=== PATIENT | male | born 1960 | race Caucasian/White ===

== ENCOUNTER 2017-10-21 17:45 | Emergency (ER) | payer BC, MEDICARE ==
[2017-10-21] MEDS ORDERED: XYLOCAINE 2% HCL 20 ML MDV IJ ONE (18:09)
[2017-10-21] MEDS ORDERED: XYLOCAINE 2% HCL 20 ML MDV ONE (18:18)
--- NOTE | 2017-10-21 18:41 | XRAY ---
Indication: 2nd finger pain following injury. Comparison: None 3 views of the right hand demonstrates nondisplaced 2nd tuft fracture. Elsewhere mild degenerative changes of the 1st metacarpal multangular articulation. No other bony, articular, or soft tissue abnormalities.
[2017-10-21] MEDS ORDERED: Augmentin 875-125 Tablet PO ONE (19:16)
--- NOTE | 2017-10-21 19:22 | ERPHSYRPT ---
- History of Present Illness Time Seen by Provider: 10/21/17 18:00 Source: patient Exam Limitations: clinical condition Patient Subjective Stated Complaint: caught 2nd digit right hand in an exercise machine at home just prior to arrival Triage Nursing Assessment: ambulated to room per self with towel around finger. skin w/d, color normal. partial amputation to finger tip 2nd digit right hand. minimal bleeding noted. Physician History: PATIENT SUSTAINED NEAR AMPUTATION OF RIGHT INDEX FINGER OFF EXCERCISE MACHINE. PATIENT COMPLAINS OF PAIN WITH BLEEDING FINGER. Occurred: just prior to arrival Method of Injury: direct blow, incised Quality: constant Severity of Pain-Max: moderate Severity of Pain-Current: moderate Extremities Pain Location: 2nd finger: right Modifying Factors: Improves With: movement Associated Symptoms: none Allergies/Adverse Reactions: acetaminophen [From Vicodin] Allergy (Verified 10/21/17 17:55) hydrocodone [From Vicodin] Allergy (Verified 10/21/17 17:55) levofloxacin [From Levaquin] Allergy (Verified 10/21/17 17:55) Home Medications: Diclofenac Sodium [Diclofenac Sodium] 100 gm TOP UD 10/21/17 [History] Gabapentin 400 mg [Neurontin 400 MG] 400 mg PO BID 10/21/17 [History] Phenytoin Sodium Extended 200 mg PO BID 10/21/17 [History] Hx Tetanus, Diphtheria Vaccination/Date Given: Yes Hx Influenza Vaccination/Date Given: Yes Hx Pneumococcal Vaccination/Date Given: No Immunizations Up to Date: No - Review of Systems Musculoskeletal: Injury, Joint Pain - Past Medical History Pertinent Past Medical History: Yes Neurological History: Other Other Medical History: brain bleed 23 yrs ago - Past Surgical History Past Surgical History: Yes Neuro Surgical History: Neurological Surgery Musculoskeletal: Orthopedic Surgery Other Surgical History: knee, wrist, back, neck - Social History Smoking Status: Never smoker Exposure to second hand smoke: Yes Drug Use: none Patient Lives Alone: No - Nursing Vital Signs Nursing Vital Signs: Initial Vital Signs Temperature 98.1 F 10/21/17 17:54 Pulse Rate 93 H 10/21/17 17:54 Respiratory Rate 16 10/21/17 17:54 Blood Pressure 112/80 10/21/17 17:54 O2 Sat by Pulse Oximetry 97 10/21/17 17:54 Pain Scale Pain Intensity 2 - Physical Exam General Appearance: mild distress Hand Exam: laceration (THERE IS A NEAR 2CM CIRCUMFERENCIAL LACERATION RIGHT INDEX FINGER ACROSS PROXIMAL NAIL, FLAP LACERATION COMPLETE NAIL DETACHED AT NAIL FOLD), soft tissue tenderness (THERE IS FULL RANGE OF MOTION MCP, PIP AND DIP JOINTS) Neuro/Tendon Exam: normal sensation, normal motor functions Mental Status Exam: alert, oriented x 3, cooperative SpO2: 97 Oxygen Delivery: Room Air Procedures - Laceration/Wound Repair Right Finger Wound Length (cm): 2 Wound's Depth, Shape: flap Wound Explored: clean Irrigated: Yes Hibiclens Prep: Yes Anesthesia: digital block, 2% Lidocaine Volume Anesthetic (ccs): 4 Wound Repaired With: sutures Suture Size/Type: 4-0 Number of Sutures: 4 Sterile Dressing Applied?: Yes Ordered Tests: Active Orders 24 hr Category Date Time Status HAND (MINIMUM 3 VIEWS) Stat Exams 10/21/17 18:27 Completed Medication Summary Discontinued Medications Generic Name Dose Route Start Last Admin Trade Name Freq PRN Reason Stop Dose Admin Lidocaine HCl 5 ml 10/21/17 18:09 10/21/17 19:01 Xylocaine 2% Hcl 20 Ml Mdv IJ 10/21/17 18:10 5 ml STAT ONE Administration Lidocaine HCl Confirm 10/21/17 18:18 Xylocaine 2% Hcl 20 Ml Mdv Administered 10/21/17 18:19 Dose 5 ml .ROUTE .STK-MED ONE - Progress Progress Note: 10/21/17 19:24, TETNUS UP TO DATE AUGMENTIN 875MG ORALLY, DISCUSSED WITH [facility] HAND SURGEON DR ARECHIGA AT 1830 ACCEPTS TRANSFER VIA PRIVATE VEHICLE 10/21/17 19:25 Counseled pt/family regarding: diagnosis, rad results - Departure Time of Disposition: 19:30 Departure Disposition: Home Clinical Impression: OPEN AVULSION FRACTURE RIGHT INDEX FINGER Condition: Stable Critical Care Time: No Referrals: MIKE ONEIL MD [Primary Care Provider] - Additional Instructions: GO DIRECTLY TO [facility] FOR EVALUATION AND TREATMENT WITH DR ARECHIGA. AVOID EATING OR DRINKING ENROUTE.
[2017-10-21] MEDS ORDERED: Augmentin 875-125 Tablet ONE (19:27)
[2017-10-21 19:40] VITALS: BP 128/76; PULSE 80; O2SAT 99
== END 2017-10-21 19:39 | disposition short-term general hospital (02) ==
LOC: ED 17:45
PROC: 0HQFXZZ Repair Right Hand Skin, External Approach (ICD-10-PCS; principal; 2017-10-21)
DX: S62.600B Fracture of unspecified phalanx of right index finger, initial encounter for open fracture (principal); W31.89XA Contact with other specified machinery, initial encounter; Y92.009 Unspecified place in unspecified non-institutional (private) residence as the place of occurrence of the external cause; Z79.899 Other long term (current) drug therapy
CPT/HCPCS: 12001; 73130; 96372; 99285; A9270-GY